=== PATIENT | male | born 1975 | race African-American/Black ===

== ENCOUNTER 2018-07-22 12:57 | Emergency (ER) | payer OTHER ==
[~2018-07-22] VITALS: Ht 170.2 cm; Wt 87.1 kg
[2018-07-22 13:02] VITALS: BP 118/77; Ht 170.2 cm; Wt 87.1 kg
== END 2018-07-22 14:18 | disposition home or self-care (01) ==
LOC: ED 12:57
DX: L98.8 Other specified disorders of the skin and subcutaneous tissue (principal); R20.2 Paresthesia of skin; F20.9 Schizophrenia, unspecified; F17.210 Nicotine dependence, cigarettes, uncomplicated
CPT/HCPCS: 82962